=== PATIENT | male | born 1935 | race Caucasian/White ===

== ENCOUNTER 2016-09-21 08:40 | Day surgery (SDC) | payer MEDICARE, OTHER ==
[~2016-09-21] VITALS: Ht 172.7 cm; Wt 101.0 kg
[~2016-09-21 08:40] MED LIST: 0.9% Sodium Chloride 1,000 ML IV PRN; ASPI-973 PO; ATEN25TA PO; CILO50TA PO; GABA-502 PO; GLPZ5T PO; LISI40TA PO; LOVA40TA PO; NITR0.4T6 SL; OMEP20TA86 PO; Sodium Chloride LOK Flush 10 mL Syringe IV PRN; TAMS0.4C98 PO; ZYL100 PO; fentaNYL-PF 50 mCg/mL 2 mL Inj IVPUSH PRN
[2016-09-21 09:15] VITALS: BP 170/72; PULSE 51; RESP 16; O2SAT 98
[2016-09-21 10:22] VITALS: BP 158/69; PULSE 59; RESP 16; O2SAT 97
--- NOTE | 2016-09-21 10:36 | ENDO ---
[address] [address] ENDOSCOPY PROCEDURE PATIENT: LEIGHA STOCK : 1935 MR#: [id number] ADMIT: 09/21/2016 JOB ID: [id number] DATE: 09/21/2016 PRIMARY PROVIDER: Mayra Bentley PROCEDURE: Flexible sigmoidoscopy with biopsy. INDICATIONS: An 81-year-old male with a large rectal tubular adenoma removed in piecemeal fashion. He returns for an early repeat examination to ensure all of this has been completely excised/ablated. BOWEL PREPARATION: Fair. Adequate examination. SEDATION: None. PROCEDURE INFORMATION: After the risks and benefits were explained, written and verbal informed consent was obtained. The patient was brought into the endoscopy suite and placed into the left lateral decubitus position. Sedation was not applied. A digital rectal examination was accomplished. Mild internal hemorrhoids were noted. The scope was introduced into the rectum and advanced to 40 cm from the anal verge. The scope was slowly withdrawn to carefully examine the mucosa for any defects or lesions. Retroflexed views were accomplished in the rectum. The colon was decompressed. The scope removed from the patient who tolerated the procedure well. FINDINGS: In the sigmoid there was some diverticulosis. The tattoo placed in the rectum was easily identified and the polypectomy site was quite easily identified. Multiple photographs were taken of this area. I did not see any evidence of obvious recurrent adenomatous mucosa. In some of the erythematous likely hyperplastic appearing mucosa, we took a biopsy to confirm the absence of adenoma. Retroflexed views otherwise were unremarkable. ENDOSCOPIC DIAGNOSES: 1. No suggestion of recurrent rectal polyp. 2. Diverticulosis. 3. Hemorrhoids. RECOMMENDATIONS: 1. Await histopathology. 2. As long as there are no adenomatous features in the biopsy, repeat colonoscopy with anesthesia in three years' time should be considered. 3. The patient can restart site cilostazol tomorrow.
--- NOTE | 2016-09-22 10:56 | PATH ---
SURGICAL PATHOLOGY Attending Physician:Helga Pack CASE STATUS: Signed Out PATIENT NAME: LEIGHA STOCK PID: [id number] : 1935 DATE COLLECTED:09/21/2016 16:38 SPECIMEN: Rectum, Biopsy CLINICAL HISTORY: 1. RECTAL POLYPECTOMY SITE BIOPSY FINAL DIAGNOSIS: 1.RECTAL POLYPECTOMY SITE BIOPSY: TUBULAR ADENOMA PRESENT WITHIN COLON MUCOSA WITH ARCHITECTURAL DISTORTION CONSISTENT WITH PREVIOUS POLYPECTOMY SITE. Negative for malignancy. ICDD12.8 GROSS DESCRIPTION: The specimen is received in one formalin filled container labeled with the patient's name, sublabeled "rectal polypectomy site" and consists of a 0.2 x 0.2 x 0.2 CM portion of tissue which is entirely submitted in one cassette. 09/21/2016 DAC MICRO DESCRIPTION: See diagnosis. ICD-9 CODES: CPT CODES: 1: 83541 Electronically Signed Out Zane Arnold MD [facility] [address], [place] [address] Technical component performed at [facility], [facility] [address], [place], [address]
== END 2016-09-21 23:59 | disposition home or self-care (01) ==
LOC: END 08:40
PROVIDERS: ATTEND Internal Medicine Gastroenterology
DX: D12.8 Benign neoplasm of rectum (principal); K57.30 Diverticulosis of large intestine without perforation or abscess without bleeding; K64.8 Other hemorrhoids; E11.42 Type 2 diabetes mellitus with diabetic polyneuropathy; I25.119 Atherosclerotic heart disease of native coronary artery with unspecified angina pectoris; E11.22 Type 2 diabetes mellitus with diabetic chronic kidney disease; N18.4 Chronic kidney disease, stage 4 (severe); Z79.84 Long term (current) use of oral hypoglycemic drugs; Z79.82 Long term (current) use of aspirin
CPT/HCPCS: 45331; J7030

== ENCOUNTER → 2016-12-14 | Day surgery (SDC) | payer MEDICARE, OTHER ==
[~2016-12-14] VITALS: Ht 172.7 cm; Wt 97.5 kg
[~2016-12-14] MED LIST changes: +GLIP10TA10 PO; -GLPZ5T PO; -LISI40TA PO; +NITR0.4T38 SL; -NITR0.4T6 SL; +OMEP20CA11 PO; -OMEP20TA86 PO; +PANT40TA3 PO; +TRAZ-115 PO
[2016-12-14 09:52] VITALS: BP 159/88; PULSE 79; O2SAT 98
[2016-12-14 10:44] VITALS: BP 146/66; PULSE 67; RESP 12; O2SAT 98
--- NOTE | 2016-12-14 11:20 | ENDO ---
[address] [address] ENDOSCOPY PROCEDURE PATIENT: LEIGHA STOCK : 1935 MR#: [id number] ADMIT: 12/14/2016 JOB ID: [id number] DATE: 12/14/2016 PRIMARY PROVIDER: Mayra Bentley PROCEDURE: Flexible sigmoidoscopy with hot snare polypectomy and APC ablation along with biopsies. INDICATIONS: An 81-year-old male with a persistent rectal tubular adenoma returning for early surveillance. EQUIPMENT: [id number] SEDATION: None. BOWEL PREP: Adequate. PROCEDURE INFO: After the risks and benefits were explained, written and verbal informed consent was obtained. The patient was brought into the endoscopy suite and placed into the left lateral decubitus position. Sedation was achieved as above. A digital rectal examination accomplished. Mild internal/external nonbleeding, nonthrombosed hemorrhoids. The scope was introduced into the rectum and advanced to somewhere in mid sigmoid. We then slowly withdrew to focus our attention on the previously resected rectal polyp. Ultimately the colon was decompressed. The scope removed from the patient who tolerated the procedure well. FINDINGS: In the rectum we could easily identify the previously placed [place] ink tattoo. There was a whitish stellate scar evident from prior polypectomy and then adjacent to the scar was an area of focal erythema which is historically where we biopsied, and I took multiple photographs of this area. We elected to try to inject this area with saline to see if all of it might lift. However, there was a central umbilicated focus that appeared fairly tacked down to the submucosa and indeed with attempt at saline lift only part of the residual polypoid appearing mucosa lifted. We were able to secure at least half of this area with the jumbo hot snare and remove it in a couple of bites using electrocautery. I then elected to use APC with a circumferential probe and rectal settings to ablate the residual areas. Prior to that, we had biopsied in a more peripheral location of the residual polyp to ensure that there was no adenomatous mucosa outside of what we were targeting. At the end of our efforts, it appeared as though all of the mucosa had either been resected or ablated in our target. The residual polypoid structure in greatest dimension was perhaps somewhere in the 8 mm range. There was a 7 mm sessile polyp, quite subtle, a little further proximal in the rectosigmoid region. This was removed separately using a hot snare. ENDOSCOPIC DIAGNOSES: 1. Persistent rectal polyp status post hot snare and APC ablation. 2. Small rectosigmoid sessile polyp. RECOMMENDATIONS: 1. Await histopathology. 2. As long as the biopsies from the polyps taken with cold forceps in the perimeter do not reveal any adenomatous mucosa, then repeat flexible sigmoidoscopy could be delayed six months. Otherwise an earlier exam would be indicated. Cc: Mayra Bentley
--- NOTE | 2016-12-19 15:06 | PATH ---
SURGICAL PATHOLOGY Attending Physician:Helga Pack CASE STATUS: Signed Out PATIENT NAME: LEIGHA STOCK PID: [id number] : 1935 DATE COLLECTED:12/14/2016 23:39 SPECIMEN: 1: Rectum, Biopsy 2: Rectum, Biopsy 3: Colon, Polyp CLINICAL HISTORY: 1). RECTAL POLYP X1 2). RECTAL POLYP MARGINS 3). RECTO SIGMOID POLYP X1 FINAL DIAGNOSIS: 1. Rectal Polyp, Polypectomy: Tubular adenoma. 2. Rectal Polyp Margins, Biopsies: Colonic mucosa with no diagnostic alteration. Negative for dysplasia/adenoma. Additional step sections examined. 3. Rectosigmoid Colon Polyp, Polypectomy: Tubular adenoma. ICD10: D12.7 D12.8 GROSS DESCRIPTION: The specimen is received in three formalin filled containers labeled with the patient's name. 1). The specimen is labeled "rectal polyp" and consists of 2 portions of tissue which aggregate to 0.6 x 0.3 x 0.3 CM. The specimen is entirely submitted in cassette 1A. 2). The specimen is labeled "rectal polyp margins" are 2 tiny fragments of tissue which aggregate to 0.1 x 0.1 x 0.1 CM. The specimen is entirely submitted in cassettes 2A. 3). The specimen is labeled "recto sigmoid polyp" and consists of 4 portions of tissue which aggregate to 0.3 x 0.3 x 0.3 CM. The specimen is entirely submitted in cassette 3A. 12/15/2016SD ICD-9 CODES: CPT CODES: 1: 01878 2: 76142 3: 29030 Electronically Signed Out Ousmane Barcenas MD, Ph.D. [facility] [address], [place] [address] Technical component performed at [facility], [facility] [address], [place], [address]
== END | disposition home or self-care (01) ==
LOC: END 00:20
PROVIDERS: ATTEND Internal Medicine Gastroenterology
DX: Z12.11 Encounter for screening for malignant neoplasm of colon (principal); Z86.010 Personal history of colon polyps; D12.8 Benign neoplasm of rectum; D12.7 Benign neoplasm of rectosigmoid junction; I25.10 Atherosclerotic heart disease of native coronary artery without angina pectoris; I12.9 Hypertensive chronic kidney disease with stage 1 through stage 4 chronic kidney disease, or unspecified chronic kidney disease; I73.9 Peripheral vascular disease, unspecified; E11.22 Type 2 diabetes mellitus with diabetic chronic kidney disease; E78.5 Hyperlipidemia, unspecified; N18.4 Chronic kidney disease, stage 4 (severe); J44.9 Chronic obstructive pulmonary disease, unspecified; G47.33 Obstructive sleep apnea (adult) (pediatric); K21.9 Gastro-esophageal reflux disease without esophagitis; Z79.4 Long term (current) use of insulin; Z79.82 Long term (current) use of aspirin
CPT/HCPCS: 45331; 45335; 45338; 45346; 88305; J7030